=== PATIENT | male | born 1990 | race Caucasian/White ===

== ENCOUNTER 2020-08-26 20:02 | Emergency (ER) | payer MEDICAID, OTHER ==
[~2020-08-26] VITALS: Ht 170.2 cm; Wt 76.8 kg
[2020-08-26 20:20] VITALS: BP 124/97
== END 2020-08-26 20:38 ==
LOC: ER 20:03
DX: S00.81XA Abrasion of other part of head, initial encounter (principal); R45.1 Restlessness and agitation; F12.90 Cannabis use, unspecified, uncomplicated; Z72.89 Other problems related to lifestyle; V89.2XXA Person injured in unspecified motor-vehicle accident, traffic, initial encounter; Y93.89 Activity, other specified; Y92.89 Other specified places as the place of occurrence of the external cause; Y99.8 Other external cause status
CPT/HCPCS: 99283